=== PATIENT | male | born 1955 | race Caucasian/White ===

== ENCOUNTER 2020-11-21 13:41 | Emergency (ER) | payer OTHER, MEDICARE, MEDICAID, SELFPAY ==
[2020-11-21] VITALS (7 sets, daily range): BP systolic 134–169; BP diastolic 93–113; PULSE 58–66; RESP 14–18; TEMP 36.4; O2SAT 94–98; BMI 27.3
--- NOTE | 2020-11-21 14:17 | XR_ITS ---
WS: [id number] Portable AP upright chest, 11/21/2020 Clinical Data: infection workup. asymptomatic. Comparison: Portable chest, 09/15/2017. Findings: No nodules, masses or effusions are seen. The heart is normal. The pulmonary vascularity is not increased. No pneumonia or pneumothorax is seen. The patient is rotated. Minimal patchy right lo wer lobe opacity could represent atelectasis and/or pneumonia. The aortic arch and descending aorta s how tortuosity. XR/XR chest 1V portable [id number] Impression: 1. Minimal patchy opacity in right lower lobe could represent atelectasis and/ or pneumonia and recommend repeat chest x-ray in one to 2 days. 2. Atherosclerosis.
[2020-11-21 14:37] LABS: Basophils # 0.1 10^3/uL (0.0-0.1); Basophils % 0.8 %; Eosinophils # 0.4 10^3/uL (0.0-0.8); Eosinophils % 4.6 %; Hemoglobin 18.5 g/dL (11.7-16.6); Lymphocytes # 3.2 10^3/uL (0.8-4.8); Lymphocytes % 42.7 %; Mean Corpuscular HGB Conc 33.6 g/dL (30.0-36.0); Mean Corpuscular Hemoglobin 33.9 pg (28.0-34.0); Mean Corpuscular Volume 100.7 fL (80-94); Mean Platelet Volume 9.3 fL (7.4-10.4); Monocytes # 0.9 10^3/uL (0.2-0.9); Monocytes % 11.6 %; Neutrophils # 3.04 10^3/uL (1.8-7.7); Nucleated Red Blood Cells % 0 %; Platelet Count 203 10^3/cmm (130-400); Red Blood Count 5.46 10^6/uL (4.1-5.3); Red Cell Distribution Width 12.9 % (12.1-15.1); White Blood Count 7.6 10^3/uL (4.0-10.0)
[2020-11-21 14:47] LABS: Alanine Aminotransferase 27 U/L (0-41); Albumin Level 4.6 g/dL (3.5-5.2); Alkaline Phosphatase 75 IU/L (40-130); Blood Urea Nitrogen 26 mg/dL (8-23); Carbon Dioxide 22 mmol/L (22-29); Chloride 101 mmol/L (98-107); Glucose 121 mg/dL (65-115); Osmolality Calculated 288 mOsm/kg (285-295); Sodium 136 mmol/L (136-145); Total Bilirubin 2.2 mg/dL (0.15-1.2); Total Protein 7.6 g/dL (6.6-8.7)
[2020-11-21 14:49] LABS: Anion Gap 17.2 (5-19); Aspartate Amino Transferase 24 U/L (0-40); Creatinine Clr Calc Pharmacy 51.1797; Potassium 4.2 mmol/L (3.5-5.1)
--- NOTE | 2020-11-21 16:24 | ED_ITS ---
HPI - General Adult General: Chief complaint: General Medical Stated complaint: LOW BP Time Seen by Provider: 11/21/20 13:56 History of Present Illness: HPI narrative: The patient is a 64-year-old male who comes to the ER from the [facility] today where they found his blood pressure to be 70/50. He says this has happened before but previously he was on a blood pressure medication which he has not taken. He says he feels fine and his blood pressure on arrival is 134/93. He offers no complaints in the ER and his blood pressure has normalized. He is completely asymptomatic Associated symptoms: Deny chest pain, confusion, dyspnea, headache(s), rash or palpitations Review of Systems General: Reports: 10 or more systems reviewed and unremarkable except in HPI and below Const: Denies: fatigue Eyes: Denies: change in vision, blurry vision or eye redness ENMT: Denies: throat pain, swelling of lips/tongue, ear or mastoid pain or na courtney congestion Card: Denies: chest pain, palpitations, irregular heart rhythm, edema, dyspnea on exertion or orthopnea Resp: Denies: dyspnea, productive cough or non-productive cough GI: Denies: abdominal pain, diarrhea or GI cramping : Denies: flank pain, urinary frequency or urinary urgency Musc: Denies: neck pain, back pain, extremity pain, joint pain, joint redness, limited range of motion or muscle weakness Skin/Breast: Denies: rash, pruritus, erythema, skin pain or skin tenderness Neuro: Denies: headache(s), numbness in extremities, weakness in extremities, sensory changes, difficulty walking, dizziness, confusion or Slurred speech present Psych: Denies: anxiety or depression Endo: Denies: polyuria All/Imm: Denies: urticaria, throat swelling or tongue swelling Physical Exam Const: COMMON NORMALS: no acute distress, average body habitus, patient oriented x3, no limitations, healthy appearing, alert and well nourished GENERAL APPEARANCE: cooperative, comfortable, well kempt and well developed ORIENTATION/CONSCIOUSNESS: Yes awake, Yes oriented to person, Yes oriented to place and Yes oriented to time HENMT: COMMON NORMALS: normocephalic, external ears normal and Normal external nose present HEAD & SCALP: normal to inspection and normocephalic NOSE: Normal external nose present EXTERNAL EAR: Yes external ears normal MOUTH: Normal oral and palatal mucosa present THROAT: posterior oropharynx normal Eye: COMMON NORMALS: Equal, round and reactive pupils present and EOMs intact bilaterally GENERAL EYE: appearance normal, both eyes and all related structures PUPIL: Yes Equal, round and reactive pupils present Neck/C-Spine: COMMON NORMALS: full ROM, no lymphadenopathy, no meningeal signs and no JVD GENERAL: Yes normal visual inspection Lymph: LYMPHATIC: no lymphadenopathy noted Chest: COMMONS NORMALS: normal inspection of the chest and normal palpation of entire chest wall Resp: COMMON NORMALS: normal respiratory effort, No retractions, No use of accessory muscles, clear to auscultation bilaterally and percussion normal EFFORT & INSPECTION: Yes able to speak in complete sentences AUSCULTATION: clear to auscultation bilaterally PERCUSSION: percussion normal Cardio: COMMON NORMALS: no JVD, regular rate, regular rhythm, S1 normal heart sound present, S2 normal heart sound present and Peripheral pulses 2+ throughout RATE: regular rate RHYTHM: regular rhythm HEART SOUNDS: S1 normal heart sound present and S2 normal heart sound present PERIPHERAL PULSES: Peripheral pulses 2+ throughout GI: COMMON NORMALS: Normal to inspection, nondistended, normoactive bowel sounds present, Soft to palpation, non-tender and no masses INSPECTION: Yes normal to inspection PALPATION: Yes Soft to palpation : COMMON NORMALS: Yes no CVA tenderness BLADDER/KIDNEY EXAM: Yes no CVA tenderness Back/Pelvis: COMMON NORMALS: no CVA tenderness, thoracic and lumbar spine normal to inspection, no thoracic nor lumbar tenderness and thoraco-lumbar ROM normal Extremity: COMMON NORMALS: normal to inspection, full ROM, capillary refill normal, no joint enlargement and no pedal edema GENERAL: Yes normal exam except as noted Neuro: COMMON NORMALS: patient oriented x3, CN's II-XII intact bilaterally, moves all extremities, no focal motor deficits, no sensory deficits noted and gait normal SENSORIUM/ORIENTATION: Yes alert, Yes oriented to person, Yes oriented to place and Yes oriented to time MENINGEAL SIGNS: Yes no meningeal signs Psych: COMMON NORMALS: mental status grossly normal, Normal thought process present, cooperative, normal affect and speech normal APPEARANCE: Yes well kempt ATTITUDE: Yes calm SPEECH: Yes normal speech THOUGHT PROCESS: Normal thought process present Skin: COMMON NORMALS: no rashes or lesions noted GENERAL SKIN EXAM: no rashes or lesions noted Course Vital Signs: Vital signs: Vital Signs Temperature 97.6 F 11/21/20 13:42 Pulse Rate 61 11/21/20 17:04 Respiratory Rate 14 11/21/20 17:04 Blood Pressure 135/100 11/21/20 17:04 Pulse Oximetry 98 11/21/20 17:04 MDM - General Adult MDM Narrative: Medical decision making narrative: Blood work shows a slight dehydration he is hemoconcentrated EMS started a liter of fluids and I will let it finished here. Also his creatinine is elevated as well as BUN. These indicate he is likely dehydrated. That is possible cause of outpatient hypotension though unknown. Chest x-ray showed a right lower lobe atelectasis versus pneumonia. He has no symptoms of infection whatsoever so I will not treat this and assume it is atelectasis. I recommended he follow-up with his primary care physician in a couple days and get a repeat chest x-ray at that time as well as blood work. Drink lots of fluids and return to the ER with worsening symptoms. Check your blood pressure at home 4 times a day when you are resting. Lab Data: Labs: Lab Results 11/21/20 11/21/20 11/21/20 Range/Units 14:30 14:30 16:42 WBC 7.6 (4.0-10.0) 10^3/ uL RBC 5.46 H (4.1-5.3) 10^6/u L Hgb 18.5 H (11.7-16.6) g/dL Hct 55.0 H (42.0-52.0) % MCV 100.7 H (80-94) fL MCH 33.9 (28.0-34.0) pg MCHC 33.6 (30.0-36.0) g/dL RDW 12.9 (12.1-15.1) % Plt Count 203 (130-400) 10^3/c mm MPV 9.3 (7.4-10.4) fL Neut % (Auto) 40.0 % Lymph % (Auto) 42.7 % [place] % (Auto) 11.6 % Eos % (Auto) 4.6 % Baso % (Auto) 0.8 % Neut # (Auto) 3.04 (1.8-7.7) 10^3/u L Lymph # (Auto) 3.2 (0.8-4.8) 10^3/u L [place] # (Auto) 0.9 (0.2-0.9) 10^3/u L Eos # (Auto) 0.4 (0.0-0.8) 10^3/u L Baso # (Auto) 0.1 (0.0-0.1) 10^3/u L Nucleated RBC % (a uto) 0 % Nucleated RBCs # 0.0 /100WBC Sodium 136 (136-145) mmol/L Potassium 4.2 (3.5-5.1) mmol/L Chloride 101 (98-107) mmol/L Carbon Dioxide 22 (22-29) mmol/L Anion Gap 17.2 (5-19) BUN 26 H (8-23) mg/dL Creatinine 1.5 H (0.7-1.2) mg/dL GFR Calculation 47.0 L (90-130) mL/min Glucose 121 H (65-115) mg/dL Calculated Osmolal ity 288 (285-295) mOsm/k g Calcium 10.0 (8.5-10.5) mg/dL Total Bilirubin 2.2 H (0.15-1.2) mg/dL AST 24 (0-40) U/L ALT 27 (0-41) U/L Alkaline Phosphata se 75 (40-130) IU/L Total Protein 7.6 (6.6-8.7) g/dL Albumin 4.6 (3.5-5.2) g/dL Globulin 3.0 (1.3-4.6) g/dL Urine Color Yellow (Yellow) Urine Appearance Clear (CLEAR) Urine pH 6 (5-7) Ur Specific Gravit y 1.010 (1.005-1.030) Urine Protein 1+ H (Negative) Urine Glucose (UA) Norm (Normal) Urine Ketones 1+ H (Negative) Urine Blood Neg (Negative) Urine Nitrate Negative (Negative) Urine Bilirubin Neg (Negative) Urine Urobilinogen Norm (Negative) mg/dL Ur Leukocyte Stefany ase Negative (Negative) Urine RBC None (0-2) /hpf Urine WBC 0-4 H (0-5) /hpf Ur Squamous Epith Cells 0-4 H (0-5) /hpf Amorphous Sediment Not Reportable Urine Bacteria 1+ H (NONE) /hpf Discharge Plan Discharge Patient Disposition: Home Clinical Impression: Dehydration Condition: Stable Prescriptions: No Action No Known Home Medications RF: 0 Discharge Orders: Discharge ED (Routine); Ordered 11/21/20 Ordered By: Marcial Mobley Discharge Diet: Advance as tolerated Discharge Activity: Resume usual activity Patient Instructions: Dehydration (ED) Activity Restrictions/Additional Instructions: You have likely had a mild episode of dehydration. We have given you IV fluids and you have improved. Your kidneys are slightly slow though it should be improved with the fluids. Please follow-up with your primary care physician in a few days and get your blood work rechecked. If you do not your kidney function could get worse and eventually result in dialysis if you do not drink lots of fluids and follow-up. Please return to the ER at anytime with worsening symptoms Coding Level of Care Code ED Rehab Services Aide for Guido Willoughby Exam Comprehensive
[2020-11-21 17:56] LABS: Add Urine Microscopic? YES; Bilirubin Urine Neg (Negative); Blood Urine Neg (Negative); Glucose Urine UA Norm (Normal); Ketones Urine 1+ (Negative); Leukocyte Esterase Urine Negative (Negative); Nitrate Urine Negative (Negative); Protein Urine 1+ (Negative); Urine Appearance Clear (CLEAR); Urine Color Yellow (Yellow); Urobilinogen Urine Norm (Negative); pH Urine 6 (5-7)
[2020-11-21 18:09] LABS: Bacteria Urine 1+ /hpf; Squamous Epithelial Cell Urine 0-4 /hpf (0-5); WBC Urine 0-4 /hpf (0-5)
[2020-11-21 18:10] LABS: Add Urine Culture? No
== END 2020-11-21 18:38 | disposition home or self-care (01) ==
PROVIDERS: Emergency Provider Family Medicine
DX: E86.0 Dehydration (principal)
CPT/HCPCS: 12345; 71045; 80053; 81001; 85025; 99283

== ENCOUNTER → 2023-04-06 15:14 | Outpatient (BNVA) | payer OTHER, SELFPAY | PROVIDERS: Referring Provider Family Medicine; Visit Provider Student in an Organized Health Care Education/Training Program | DX: M72.0 Palmar fascial fibromatosis [Dupuytren] (principal); M18.0 Bilateral primary osteoarthritis of first carpometacarpal joints | CPT/HCPCS: 73130; 99204 ==

== ENCOUNTER → 2023-09-29 08:57 | Outpatient (BNVA) | payer OTHER, SELFPAY | PROVIDERS: PCP Family Medicine; Visit Provider Student in an Organized Health Care Education/Training Program | DX: G56.22 Lesion of ulnar nerve, left upper limb; G56.03 Carpal tunnel syndrome, bilateral upper limbs | CPT/HCPCS: 99214 ==

== ENCOUNTER 2023-10-29 06:16 | Day surgery (SDC) | payer OTHER, SELFPAY ==
[2023-10-29] VITALS (9 sets, daily range): BP systolic 130–180; BP diastolic 86–120; PULSE 66–86; RESP 16–17; TEMP 36.1–36.4; O2SAT 91–97; BMI 32.0
[2023-10-29] MEDS: ketorolac 30 mg/mL INJ IVP (06:40)
[2023-10-29] MEDS: sodium chloride 0.9% 1,000 ML 30 ML IV (06:42)
[2023-10-29] MEDS: acetaminophen 1,000 MG/100 ML PIGGYBACK 400 MG IV (06:43)
[2023-10-29] MEDS: scopolamine 1.5 Patch 1 PATCH TRANSDERMA (06:55)
--- NOTE | 2023-10-29 07:15 | P.ANESASSM_ITS ---
Pre-Anesthetic Assessment Height/Weight: Height 1.75 m Weight 98.43 kg Temp Pulse Resp BP Pulse Ox O2 Del Method 97.3 F L 86 17 180/120 97 Room Air 10/29/23 06:29 10/29/23 06:29 10/29/23 06:29 10/29/23 06:29 10/29/23 06:29 10/29/23 06:29 Operation Date: 10/29/23 07:45 Proposed Procedures p left Carpal Tunnel Release/guyons canal release(Left) - Mark [place], DO s left Cubital Tunnel Release(Left) - Mark Ruby, DO s Possible Left Ulnar Nerve Transposition(Left) - Mark Ruby, DO Was Beta Maverick taken within 24 hours: N/A Was Clonidine taken within 24 hours: N/A Last intake: Intake Last Liquid Date 10/28/23 Last Liquid Time 22:00 Last Solid Date 10/28/23 Last Solid Time 20:00 Social No tobacco Exam alert and oriented x 3 Airway Submandibular: within normal limits Cervical ROM: within normal limits Mallampati: Class II History/ROS No significant history except as noted and No significant complaints CV/HEM Hypertension Anesthetic Plan ASA status: 2 Anesthesia: General Risk of > 500 ml blood loss (7ml/kg in children): No Medications/Allergies Home Medications Medication Instructions Recorded Confirmed Last Taken Type amlodipine 5 mg tablet 2.5 mg PO DAILY 05/08/21 10/28/23 10/28/23 History parathyroid hormone 1 tab PO DIRECTED 10/29/23 10/29/23 10/28/23 History Allergies Allergy/AdvReac Type Severity Reaction Status Date / Time daptomycin Allergy Intermediate Unknown Verified 10/28/23 10:19 nafcillin Allergy Intermediate Unknown Verified 10/28/23 10:19 Current Medications Generic Name Dose Route Start Last Admin Trade Name Freq PRN Reason Stop Dose Admin Sodium Chloride 1,000 mls @ 30 mls/hr 10/29/23 06:30 10/29/23 06:42 Sodium Chloride 0.9% IV 10/30/23 06:29 30 mls/hr .Q24H KRISTY Administration PFSH Anesthesia Family History Mother Cancer Sister Diabetes Brother Diabetes Social History Smoking and tobacco/nicotine status: light tobacco/nicotine user Marital status: Number of children: 2 service: Yes Data Anesthesia Cardiac Studies: No Data to Display
--- NOTE | 2023-10-29 07:34 | W.PM.OPSUD ---
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
[2023-10-29] MEDS: ceFAZolin 2,000 MG in sodium chloride 0.9% (plus) 50 ML 100 MG IV (07:45)
[2023-10-29] MEDS: lidocaine-epi 2% 20 mL INJ 5 ML INJECTION (08:05)
[2023-10-29] MEDS: ROPivacaine 0.5% SDV 30 mL 25 MG INJECTION (08:05)
--- NOTE | 2023-10-29 09:49 | P.BOP_ITS ---
Date of Procedure: 10/29/2023 Surgeon: Mark Beltran DO Certified [place] Administrator(s): WM Egan Procedure(s) performed: Left carpal tunnel release Left ulnar nerve release at Guyon's canal at the wrist Left cubital tunnel release at the elbow (ulnar nerve decompression at the elbow) Left elbow large cyst excision on ulnar nerve (4 cm x 2 cm x 1 cm) Left elbow ulnar nerve transposition Findings of the procedure(s): Patient was found to have left carpal tunnel syndrome as well as ulnar nerve entrapment at the wrist procedure went as planned distally at the wrist. Patient subsequently will decompressing the ulnar nerve at the cubital tunnel was found to have a large ganglion cyst that communicated to the elbow joint the cyst cause mass effect and significant compression on the ulnar nerve this was not intralesional in nature and rested and adhered upon the ulnar nerve this was dissected off and excised and sent for pathology patient then subsequently did undergo an ulnar nerve transposition given the ulnar nerve instability over the medial epicondyles. The procedure went with no complications patient will be placed in a long-arm splint a [place] drain was placed and we will have him see our OT hand therapy specialist tomorrow to have the [place] drain pulled and new dressing applied as well as a custom splint. Estimated blood loss: 15 mL Specimen(s) removed: Elbow cyst excised and sent for pathology Post-operative diagnosis: Left carpal tunnel syndrome, left ulnar nerve entrapment at the wrist at Guyon's canal, left cubital tunnel syndrome, subluxating ulnar nerve, left elbow cyst
--- NOTE | 2023-10-29 09:52 | P.OP_ITS ---
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 77 minutes IV fluids: See anesthesia record Complications: None Findings: See operative report narrative Condition: stable Disposition: same day Brief History: Patient's been seen and worked up in the outpatient setting and findings consistent with preoperative diagnosis.? Patient has left Carpal Tunnel Syndrome, left cubital tunnel and left ulnar entrapment at guyons canal which has been worked up in the outpatient setting has physical exam findings consistent with this. Patient's nerve study consistent with this. Exam findin gs consistent with preoperative diagnosis. Pt has findings consistent with left carpal tunnel , left ulnar nerve entrapment at Guyon's canal as well as at the cubital tunnel. Patient's failed conservative treatment.? As result through shared decision making agreed to proceed with left carpal tunnel release ,?left ulnar nerve release at the wrist and at the elbow. We talked about tx options as nonoperative and operative intervention.? Understands risk benefits complication alternatives surgical nonsurgical treatment options.? Understanding risks pt agrees to proceed with surgical intervention. Understanding these risks pt agrees to proceed with surgery.? Consent obtained in office. Procedure: Patient seen evaluate in the preoperative holding area.? Consent was reviewed and signed with patient.? Correct extremity marked.? Patient seen evaluated by anesthesia department once cleared for surgery was then taken back to the operative suite placed in supine position all bony prominences well-padded patient properly secured to bed.? left upper extremity placed onto armboard.? Nonsterile tourniquet applied left upper arm.? Patient then underwent anesthesia per the anesthesia department.? Patient's left upper extremity was then prepped and draped in standard orthopedic fashion.? Final timeout performed.? Patient received appropriate preoperative antibiotics. Esmarch was used exsanguinate the left upper extremity.? Tourniquet was insufflated to 250 mmHg. I started with my release of the ulnar nerve distally. An extensive laterally based palmar incision that extended proximal past the wrist crease with a Bhupendra incision was made directly over Guyon's canal. At this point in time incision was made between the Pisa form and hamate to follow neurovascular bundle of Guyo n's canal. sharp scalpel incision was subsequently made through skin and then I switched to Littler dissection scissors. At this point in time I dissected down over top guyons canal release the brevis muscle belly along the hypothenar region to obtain access into Guyon's canal. Thick band of fascia was noted proximally just proximal to the wrist crease this was released and made sure there was complete decompression of the ulnar nerve proximally just prior to Guyon's canal subsequently released guyon canal and direct visualization with sharp scalpel excision as well as Littler dissection scissors with care utilizing my dental assistant teacher to protect the neurovascular bundle. At this point in time I continued to perform release of the fascia/the roof of Guyon's canal all the way to its most distal extent and the nerve was found to be completely free and untethered. I then in order to perform release of the deep motor branch I then mobilized my dissection around the ulnar nerve and identified the deep motor branch as it courses towards the under knee fascia connected with the hamate. I then utilized dissection scissors and under direct visualization completed my release carefully of the fascial bands tethering over top of the deep motor branch. At this point in time the ulnar nerve was completely decompressed through Guyon's canal and ulnar nerve had complete laxity with no areas of entrapment or tethering. No masses were noted within the contents of the guyons canal.? This completed the ulnar nerve release at the wrist. Next I then subsequently visualized from the ulnar aspect of the carpal tunnel. Identified the distal extent as well as proximal extent into the antebrachial fascia. As result approaching the carpal tunnel from the ulnar position just above the hook of the hamate made an incision through the dense scar tissue and recurrence of the carpal tunnel syndrome. Dense scar tissue consistent with previous carpal tunnel release surgery was noted there was significant entrapment of the median nerve. I then switched to Littler dissection scissors to complete my dissection and release distally with care to protect neurovascular structures distally. The tendons were healthy within the carpal tunnel. No masses were noted. I then carried my dissection proximally utilizing retraction by my dental assistant teacher as well as direct visualization with loupe magnification identify the proximal extent of the carpal tunnel and release this to its entirety as well as identified the median nerve and released the tethering of the antebrachial fascia proximally past the wrist crease into the distal aspect of the forearm with no further evidence of median nerve entrapment. The median overall showed signs of compression and inflammation irritation but overall appeared healthy. THis completed the carpal tunnel release. I subsequently irrigated the wound bed and placed a wet Ray-Chemo into the incision for later closure. Next marked out the landmarks of the left elbow of the medial epicondyle and olecranon and made a curvilinear incision following the course of the ulnar nerve at the medial aspect of the elbow.? Sharp scalpel incision was made through skin and subcutaneous tissue.? Next I switched to Littler dissection scissors and spread in plane of the medial antebrachial cutaneous nerve branching which was protected throughout this part of the dissection.? Then I directly came down over the fascia and identified the 2 heads of the FCU fascia and split in the middle and subsequently identified my ulnar nerve distally. Immediately on splitting the fascia of the FCU heads I noticed a significant protuberance and a large ganglion cyst was noted size was 4 cm x 2 cm x 1 cm. I switched with gentle dissection dissecting off the ganglion nerve which had severe compression just distal past Silva's ligament there was significant protuberance and hourglass shaping of the nerve around this ganglion cyst this was closely adhered to the nerve but was found to being once appropriately and gently dissected off of the nerve to have no intra nervous appearing lesion and this was cystlike in nature as it was popped and there was clear yellow gelatinous normal cyst type fluid the cyst was then subsequently ellipsed in all planes and tracked down to the base which was communicated to the elbow joint. This was then transected at the base while protecting the nerve throughout the case and subsequently the base of the cyst was then cauterized with bipolar electrocautery. This completed the cyst excision and then subsequently proceeded with completing the cubital tunnel release. This was then completely released distally under direct visualization and loupe magnification.? Once the nerve was then identified I then subsequently tracked this proximally and released this through Silva's ligament as well as complete decompression of the nerve proximally all the way past the intermuscular septum.? The nerve was completely released and decompressed both proximally and distally.? I then took the elbow through range of motion and there was found to have instability/ subluxating of the ulnar nerve.? I thoroughly irrigated the nerve throughout the case to prevent it from drying out. Of note the ulnar nerve had significant irritation and inflammation.? Next while protecting the nerve as well as care to not injure any venous structures I then excised the intermuscular septum proximally with bipolar electrocautery.? This allowed for there to be no entrapment proximally with my transposition.? Next I then performed my standard Z- flap into the fascia.? This created a large thick fascial band that would be sutured to secure the ulnar nerve when its been transposed.? Once the incision was made just through the fascia I then mobilized just the fascia and freed the muscle belly off of this.? I then sequentially excised the T and Y shaped fascial bands throughout the flexor pronator mass to prevent any type of bandage strip structure irritating the transposition.? At this point I had only soft tissue and muscle belly with which the ulnar nerve could rest.? I had to do a small excision of the muscle belly distally to create a nice trough for the nerve to lie.? At this point I then mobilized the nerve and this was transposed into the flexor pronator insertion under the fasica flaps.? There was no evidence of kinking/tethering of the nerve. this was significantly redundant and lax with no signs of tension or entrapment.? I then utilized a 3-0 Ethibond suture and approximated the fascia flaps that was created and the right knee okay okay secured with horizontal interrupted mattress stitches.? I was able to place 2 fingers under the repair with no evidence of entrapment and the elbow was taken through range of motion and no areas of entrapment or kinking were noted on the nerve and the nerve was redundant relaxed in all ranges of motion.? This completed my ulnar nerve decompression of the cubital tunnel as well as ulnar nerve transposition.? Wound bed was then thoroughly irrigated.? Tourniquet was deflated.? Maintained exact hemostasis with bipolar electrocautery.? I did place a chang drain to prevent hematoma formation. As result the skin was reapproximated with interrupted Vicryl subcutaneous suture 3-0.? I next utilized a running horizontal mattress stitch with 3-0 nylon.? Extremity was then cleaned and the incision was then covered with Xeroform 4 x 4's ABD Curlex and soft roll and a posterior long-arm splint was then applied with an Aguila wrap.? Patient was then awakened from anesthesia and taken to PACU in stable condition. Disposition: Patient taken to PACU in stable condition recovering well.? Patient will receive appropriate discharge instructions as well as pain medication postoperatively.? We will follow-up with me in the office in 2 weeks. Will get patient set up with OT hand therapy for dressing change drain pull as well as a custom splint. Patient understands agrees with current plan.? All questions answered.? pt understands if any questions or concerns and contact the office for follow-up appointment..
[2023-10-29] MEDS: TRAMadol 50 mg Tablet PO (11:04)
--- NOTE | 2023-10-29 14:19 | ANE.PACU2 ---
Inpatient post-anesthesia follow up: Airway intact: Yes Vital signs: Temperature 97.6 F Pulse Rate 73 Respiratory Rate 16 Blood Pressure 155/105 Pulse Oximetry 94 Oxygen Delivery Me thod Room Air Oxygen Flow Rate 6 Fraction of Inspir ed Oxygen Hydration adequate: Yes Nausea and vomiting: No Pain level: 1 Mental status: Baseline
== END 2023-10-29 11:29 | disposition home or self-care (01) ==
PROVIDERS: PCP Family Medicine; Visit Provider Student in an Organized Health Care Education/Training Program
PROC: (CPT 64721; principal; 2023-10-29 07:45)
PROC: (CPT 64718; 2023-10-29 07:45)
PROC: (CPT 24076; 2023-10-29 07:45)
PROC: (CPT 24076; 2023-10-29 07:45)
DX: M67.422 Ganglion, left elbow (principal); G56.22 Lesion of ulnar nerve, left upper limb; G56.02 Carpal tunnel syndrome, left upper limb; M25.322 Other instability, left elbow; F17.200 Nicotine dependence, unspecified, uncomplicated
CPT/HCPCS: 24076; 64718; 64719; 64721; 88304; J0131; J0690; J1100; J1170; J1885; J2371; J2405; J2704; J2795; J3010; J7030

== ENCOUNTER 2023-10-30 06:00 | Outpatient (RCR) | payer OTHER, SELFPAY | END 2023-11-18 23:59 | disposition home or self-care (01) | LOC: SOT 06:00 | PROVIDERS: Visit Provider Student in an Organized Health Care Education/Training Program | DX: Z47.89 Encounter for other orthopedic aftercare (principal) | CPT/HCPCS: 97530; 97760; L3763 ==

== ENCOUNTER → 2023-11-10 08:37 | Outpatient (BNVA) | payer OTHER, SELFPAY | PROVIDERS: Visit Provider Physician Assistant | DX: Z98.890 Other specified postprocedural states (principal) | CPT/HCPCS: 99024 ==

== ENCOUNTER 2023-11-12 06:00 | Outpatient (RCR) | payer OTHER, SELFPAY | END 2023-11-18 23:59 | disposition home or self-care (01) | LOC: SOT 06:00 | PROVIDERS: Visit Provider Physician Assistant | DX: Z47.89 Encounter for other orthopedic aftercare (principal) | CPT/HCPCS: 97110; 97140; 97166; 97530 ==

== ENCOUNTER 2023-11-19 06:00 | Outpatient (RCR) | payer OTHER, SELFPAY | END 2023-12-17 23:59 | disposition home or self-care (01) | LOC: SOT 06:00 | PROVIDERS: Visit Provider Physician Assistant | DX: Z47.89 Encounter for other orthopedic aftercare (principal) | CPT/HCPCS: 97110; 97140 ==

== ENCOUNTER 2023-12-18 06:00 | Outpatient (RCR) | payer OTHER, SELFPAY | END 2024-01-17 23:59 | disposition home or self-care (01) | LOC: SOT 06:00 | PROVIDERS: Visit Provider Physician Assistant | DX: Z47.89 Encounter for other orthopedic aftercare (principal) | CPT/HCPCS: 97110; 97140 ==

== ENCOUNTER → 2023-12-22 09:22 | Outpatient (BNVA) | payer OTHER, SELFPAY | PROVIDERS: Visit Provider Student in an Organized Health Care Education/Training Program | DX: Z98.890 Other specified postprocedural states (principal) | CPT/HCPCS: 99213 ==

== ENCOUNTER → 2024-06-28 09:09 | Outpatient (BNVA) | payer OTHER, SELFPAY | PROVIDERS: PCP Family Medicine; Visit Provider Student in an Organized Health Care Education/Training Program | DX: Z98.890 Other specified postprocedural states (principal); G56.01 Carpal tunnel syndrome, right upper limb; G56.21 Lesion of ulnar nerve, right upper limb | CPT/HCPCS: 99213 ==

== ENCOUNTER 2025-03-08 07:30 | Outpatient (CLI) | payer OTHER, SELFPAY ==
--- NOTE | 2025-03-08 07:34 | CT_ITS ---
WS: [id number] CT ABDOMEN WITHOUT CONTRAST HISTORY: INCREASE IN ABDOMINAL BLOATING Contiguous single phase 5 mm axial imaging performed of the abdomen. Oral contrast has been provided. Coronal and sagittal reformats are submitted. All CT scans at [facility] use at least one of these dose optimization techniques: automated exposure control; mA and/or kV adjustment per patient size (includes targeted exams where dose is matched to clinical indication); or iterative reconstruction. IV CONTRAST: None Oral contrast: Yes. DLP: 343.54 mGy COMPARISON: 03/19/2022 Lower thorax: Bilateral lower lobe nodular opacifications are similar to 03/19/2022. Tiny micronodules and tree-in-bud airspace disease is chronic. Heart is normal size. Small hiatal hernia. Liver/biliary system: Normal size liver with mild diffuse hepatic steatosis. Gallbladder: Cholelithiasis without acute cholecystitis. Pancreas: Normal size pancreas and pancreatic duct. No adjacent inflammation. Spleen: Normal size spleen. No mass or infarct. Adrenal glands: Normal. Right kidney: Mild perinephric stranding. No obstruction. 2 mm calcification upper pole. Left kidney: Normal size kidney with mild perinephric stranding. No obstruction. Aorta: Normal. Lymphadenopathy: None. Free fluid: None. GI tract: As visualized within the upper abdomen negative. No obstruction. Abdominal wall: Unremarkable abdominal wall. No hernia. Foreign body causing artifact in the RIGHT upper quadrant of uncertain etiology. Visualized osseous structures: Degenerative disc disease. No destructive bone lesions. CT/CT abdomen wo con [id number] IMPRESSION: 1. No ascites or adenopathy. 2. Mild hepatic steatosis. 3. Mild perinephric stranding around each kidney may be chronic. No hydronephr osis. 4. Visualized GI tract in the abdomen is negative. 5. Small hiatal hernia.
== END 2025-03-08 07:31 | disposition home or self-care (01) ==
PROVIDERS: PCP Family Medicine; Visit Provider Family Medicine
DX: Z01.89 Encounter for other specified special examinations (principal); K76.0 Fatty (change of) liver, not elsewhere classified; N28.89 Other specified disorders of kidney and ureter; K44.9 Diaphragmatic hernia without obstruction or gangrene; J98.4 Other disorders of lung; K80.20 Calculus of gallbladder without cholecystitis without obstruction; R93.5 Abnormal findings on diagnostic imaging of other abdominal regions, including retroperitoneum; R93.7 Abnormal findings on diagnostic imaging of other parts of musculoskeletal system
CPT/HCPCS: 74150